=== PATIENT | male | born 1990 | race Caucasian/White ===

== ENCOUNTER 2017-07-25 16:21 | Emergency (ER) | payer OTHER ==
[~2017-07-25] VITALS: Ht 160 cm; Wt 78.0 kg
[2017-07-25 16:23] VITALS: BP 138/79; Ht 160 cm; Wt 78.0 kg
== END 2017-07-25 17:26 | disposition other institution (70) ==
LOC: ED 16:21
DX: Z02.89 Encounter for other administrative examinations (principal)